=== PATIENT | female | born 1985 | race Two or more races ===

== ENCOUNTER 2017-02-24 01:49 | Inpatient (IN) | payer BC ==
[2017-02-24 02:48] VITALS: BMI 29.7
[2017-02-24] MEDS ORDERED: Lactated Ringer's 1,000 ML IV SCH ×4 (03:00→13:00)
--- NOTE | 2017-02-24 04:44 | OBHP ---
Datetime: 02/24/2017 02:35 IP Adm Impression: , intrauterine IP Chief Complaint Other: cramping pain IP Admit Plan: Observation/Evaluation Admit Comment, IP Provider: 32 y/o @ 30.0 weeks via LMP presents complaining of cramping lower abdominal pain. Pt reports pain started suddenly at 20:30 on 02/23 and has been constant since. Taz s inciting event. Pain is constant, "feels like band around abdomen", and radiates to her lower back. Denies alleviating factors. Denies change in diet, sexual activity. Reports less than normal PO flui d intake today. Denies VB/LOF and reports good FM. No other associated symptoms. Denies fever/chills, headaches, visual disturbances, epigastric pain, CP/SOB, N/V/D/C, urinary symptoms. PMD: Dr. Alcantara POBhx: , uncomplicated pregnacy thus far : uneventful, compliant with care PSurgHx: none PMHx: Intermittent asthma Meds: rescue inhaler PRN, PNVs ALL: aspirin (rxn anaphylaxis) Social: denies ETOH, tobacco, drug use, sexual activity A/P: 32 y/o @ 30.0 weeks IUP via LMP for evaluation of cramping abdominal pain. -IV fluid hydration, 1L LR @999, re-evaluate after -FHR monitoring -case discussed with Dr. Vicente Denis MD PGY1 @ 2:45am The patient specifically with resident I agree with the note patient received IV fluid hydration w ill send fibronectin. cont observation Pelvic Type - PN: Not Done Extremities - PN: Normal Abdomen - PN: Normal Back - PN: Normal Breast - PN: Normal Lungs - PN: Normal Heart - PN: Normal Thyroid - PN: Normal Neurologic - PN: Normal HEENT - PN: Normal General - PN: Normal FHR - Baseline A Provider: 140 EGA AdmitDate IP: 30.0 Vital Signs Provider: Reviewed; Within Normal Limits IP Chief Complaint: Maternal discomfort NICHD Variability Prov Fetus A: Moderate 6-25bpm NICHD Accel Fetus A IP Provider: 10X10 FHR Category Provider Fetus A: Category I NICHD Decel Fetus A IP Provider: None Dilatation, Provider: 0 Effacement, Provider: 0 Station, Provider: -2 Genitourinary Exam: Not Done DTRs - PN: Normal
--- NOTE | 2017-02-24 10:31 | US ---
HISTORY: Contractions at 30 weeks COMPARISON: No prior TECHNIQUE: Transabdominal/transvaginal sonographic evaluation of the pelvis performed. FINDINGS: Findings: Current study reveals single living intrauterine gestation at with average age of approximately 30 weeks 2 days +/-2 weeks 5 days. . Cephalic presentation. Placenta is anteriorly located free of the cervical os Measurements: HC 27.68 cm = 30 weeks 2 days Heart rate document at 140 BPM CHAR based on average ultrasound age = 0805/03/2017 The cervix measures approximately 3.99 cm and appears slightly open with questionable tiny amount of flow fluid within the proximal endocervical canal. . Impression: Limited ultrasound performed to assess cervical sized. . Single living intrauterine gestation at approximately 30 weeks 2 days +/-2 weeks 5 days. Cephalic presentation. Placenta is anteriorly located free of the cervical os. Heart rate document at 1:40 BPM The cervix is slightly measuring 3.99 cm. Questionable tiny amount of fluid within the proximal endocervical canal
[2017-02-24] MEDS ORDERED: Magnesium Sulfate 4 gm/100 ml 4 GM/100 ML BAG IV ONE (11:42)
[2017-02-24] MEDS ORDERED: Magnesium Sul 40GM/1L SW 40 GM/1,000 ML ML IV ONE (11:42)
--- NOTE | 2017-02-24 12:11 | OBADHP ---
Datetime: 02/24/2017 12:02 Admit Comment, IP Provider: 32 yo G1 at 30 wks w/ abdominal cramping and tenderness, FFN negative, c ervix slighty open and 3.99 cm Pt admitted for Betamethasone and IV magnesium H_P dictated, "[id number]" (ES) Abdomen - PN: Abnormal Neurologic - PN: Normal General - PN: Normal FHR - Baseline A Provider: 130s Membranes, Provider: Intact Contraction Comments Provider: 2-3 Vital Signs Provider: Reviewed IP Chief Complaint: Maternal discomfort NICHD Variability Prov Fetus A: Moderate 6-25bpm Dilatation, Provider: 0 Effacement, Provider: 0 Station, Provider: -3 Genitourinary Exam: Normal EGA AdmitDate IP: 30.0 IP Adm Impression: , intrauterine IP Admit Plan: Initiate labor protocol Datetime: 02/24/2017 02:35 IP Chief Complaint Other: cramping pain Pelvic Type - PN: Not Done Extremities - PN: Normal Back - PN: Normal Breast - PN: Normal Lungs - PN: Normal Heart - PN: Normal Thyroid - PN: Normal HEENT - PN: Normal NICHD Accel Fetus A IP Provider: 10X10 FHR Category Provider Fetus A: Category I NICHD Decel Fetus A IP Provider: None DTRs - PN: Normal
[2017-02-24] MEDS: Betamethasone Soluspan 30 mg/5mL Inj Susp IM SCH (13:08)
--- NOTE | 2017-02-24 16:27 | HP ---
HISTORY OF PRESENT ILLNESS: This is a 32-year-old G1 at 30 weeks and 0 days with an EDC of 05/05/2017 by LMP, consistent with 7-week ultrasound, who presents last night feeling abdominal cramping that started around 8:30, became progressively worse and became constant at 10:00 p.m. Of note, patient's father who was in [facility] unexpectedly on Tuesday. Last night, patient had an fFN done that was negative. She has also had a cervical length done this am. The ultrasound findings for her current study reveal single live intrauterine gestation with an average age of approximately 30 weeks and 2 days , cephalic presentation. Placenta is anterior, located free of the cervical os. The cervix measures approximately 3.99 cm, appears slightly open with questionable tiny amount of flow fluid within the proximal endocervical canal. The patient still feels abdominal tenderness and she is still karri on the monitor and so it was decided to admit her to the hospital for steroids and magnesium. Of note, this patient is rubella nonimmune and it was recommended she receive MMR . This is also complicated by the fact that size is greater than dates. On 01/19/2017, the overall biometry was in the 87th percentile and JAKE was 21.4, which was increased. The patient had a one hour Glucola which was 144 and her 3-hour glucose tolerance test was negative. PAST MEDICAL HISTORY: Asthma, no hospitalizations. PAST SURGICAL HISTORY: None. MEDICATIONS: vitamins, calcium, and vitamin E. ALLERGIES: ASPIRIN WHICH CAUSES ASTHMA. GYNECOLOGICAL HISTORY: On 09/2016, Pap smear was ASCUS with negative HPV. The patient denies any history of any STDs and patient does report regular periods. FAMILY HISTORY: Her father had hypertension and is . Her mother has hypertension. SOCIAL HISTORY: The patient denies tobacco, alcohol, and illicit drug use. MEDICAL HISTORY: Of note, patient reports that she had the Mirena inserted maybe about in 08/2015 and it was removed in about 04/2016 due to an infection per patient, although she was never prescribed antibiotics. LABORATORIES: Hemoglobin electrophoresis normal. Blood type O positive, antibody screen negative. Pap ASCUS with negative HPV. Urine culture negative, gonorrhea and chlamydia negative. Syphilis negative, rubella nonimmune, HIV negative, hepatitis B surface antigen negative. Spinal muscular atrophy negative. Fragile X negative. Cystic fibrosis negative. Panorama was low risk and it was male fetus. Maternal serum AFP was negative. Her 1-hour Glucola was 144. A 3-hour glucose tolerance test was negative and on 02/18/2017 , she had 28-week labs. Syphilis, HIV were negative with a 3-hour glucose tolerance test which was negative. PHYSICAL EXAMINATION: VITAL SIGNS: Afebrile. Vital signs stable. GENERAL: The patient appears comfortable lying in bed. ABDOMEN: Mildly diffusely tender abdomen. VAGINAL: The internal os feels closed, and external os feels open and the cervix feels moderately soft. External heart monitor: The baseline is in the 130s with moderate variability Tocodynamometer: Irritability noted as well as irregular contractions. ASSESSMENT AND PLAN: This is a 32-year-old G1 at 30 weeks and 0 days who started having cramps last night that became progressively worse. By ultrasound , the cervix is slightly open and measures about 3.99 cm in length. fibronectin was negative. The patient is symptomatic, complaining of abdominal tenderness and it was decided to give her betamethasone for lung maturity and IV magnesium given that she is slightly dilated and still symptomatic. Glen Alcantara MD cc: [id number] TT: 02/24/2017 16:26:36 sn MTDD
--- NOTE | 2017-02-25 06:23 | OBDS ---
MATERNAL INFORMATION Provider Comments: Pt progressed to complete and pushed to deliver a viable male through bety r fluid at 05:28am. Terminal meconium present. Apgars 9 and 9. Wt 8#4.8. Nuchal x 1 easilt reduced . Mouth and nares bulb-suctioned. Cord clamped and cut. placed on mother's abdomen. Cord b lood collected. Placenta delivered spontaneously intact w/ 3vc at 05:34am. 3rd degree tear repaired w/ 0-v, 2-0rapide and 3-0v. Rectum intact. Pt and baby tolerated procedure well. EBL 250mL LABOR SUMMARY EDC: 05/05/2017 00:00 No. Babies in Womb: 1 VAGINAL DELIVERY Laceration Repair Note: Spincter muscle reapproximated w/ interrupted stitches of 0-v. Vagina and p erineum reapproximated w/ 2-0 rapide and 3-0v. Rectum intact.
[2017-02-25] MEDS ORDERED: Magnesium Sul 40GM/1L SW 40 GM/1,000 ML ML IV ONE (08:35)
--- NOTE | 2017-02-25 10:04 | OBPN ---
Datetime: 02/25/2017 10:01 IP Progress Impression: Reassuring heart rate IP Progress Plan: Continue present management; Discharge IP Progress Note Comment: She feel comfortble. No pain. Will given second dose of Betamethasone and discharge home...Spoke to PMD Dr Alcantara...appt next WE ed for CLM and OB appt next tuesday Datetime: 02/24/2017 12:02 Membranes, Provider: Intact Contraction Comments Provider: 2-3 FHR - Baseline A Provider: 130s Vital Signs Provider: Reviewed NICHD Variability Prov Fetus A: Moderate 6-25bpm Dilatation, Provider: 0 Effacement, Provider: 0 Station, Provider: -3 Datetime: 02/24/2017 02:35 NICHD Accel Fetus A IP Provider: 10X10 FHR Category Provider Fetus A: Category I NICHD Decel Fetus A IP Provider: None
[2017-02-25] MEDS: Betamethasone Soluspan 30 mg/5mL Inj Susp IM SCH (11:22)
== END 2017-02-25 11:50 | disposition home or self-care (01) | DRG 775 ==
LOC: H.EROB2 01:49 → H.L&D 11:38
PROVIDERS: ADMIT Obstetrics & Gynecology; ATTEND Obstetrics & Gynecology
PROC: 0DQR0ZZ Repair Anal Sphincter, Open Approach (ICD-10-PCS; principal; 2017-02-24)
PROC: 10E0XZZ Delivery of Products of Conception, External Approach (ICD-10-PCS; 2017-02-24)
PROC: 4A1HXCZ Monitoring of Products of Conception, Cardiac Rate, External Approach (ICD-10-PCS; 2017-02-24)
DX: O69.81X0 Labor and delivery complicated by cord around neck, without compression, not applicable or unspecified (principal); O70.20 Third degree perineal laceration during delivery, unspecified; J45.909 Unspecified asthma, uncomplicated; Z37.0 Single live birth; O99.52 Diseases of the respiratory system complicating childbirth; O77.0 Labor and delivery complicated by meconium in amniotic fluid; Z82.49 Family history of ischemic heart disease and other diseases of the circulatory system; Z3A.30 30 weeks gestation of pregnancy

== ENCOUNTER 2017-05-11 19:06 | Inpatient (IN) | payer BC, OTHER ==
[2017-05-11 20:01] VITALS: BMI 33.7
[2017-05-11 20:26] LABS: HEMATOCRIT 35.2 % (34.0-47.0); MEAN CELL VOLUME 91.6 fl (81.0-99.0); MEAN CORPUSCULAR HEMOGLOBIN 31.8 pg (27.0-31.0); MEAN CORPUSCULAR HGB CONC 34.7 g/dL (33.0-37.0); RED CELL DISTRIBUTION WIDTH 14.8 % (11.5-14.5); WHITE BLOOD COUNT 9.6 K/uL (4.8-10.8)
[2017-05-12] MEDS: Lactated Ringer's 1,000 ML IV SCH ×4 (03:32→18:19)
[2017-05-12] MEDS ORDERED: Fentanyl/Bupivacaine HCl 250 ML EPI ONE (03:54)
[2017-05-12] MEDS ORDERED: Oxytocin 30 units/LR 500ML 30 U/500 ML BAG IV ONE (07:27)
[2017-05-12] MEDS ORDERED: Lidocaine 1% Inj (20ml) ONE (07:27)
--- NOTE | 2017-05-12 08:05 | OBADHP ---
Datetime: 05/11/2017 19:57 Admit Comment, IP Provider: 32 y/o F, , IUP@40.6 weeks, L_D for induction of labor. denies nause a, vomiting, SOB, chest pain or visual changes - positive FM, negative LOF/BV/CTX PMD: Dr. Alcantara POBhx: : uneventful PSurgHx: none PMHx: Intermittent asthma Meds: rescue inhaler PRN, PNVs ALL: aspirin (rxn anaphylaxis) Social: denies ETOH, tobacco, drug use, sexual activity ROS: as per HPI VS: 129/83, stable FHR: 166 PE: unremarkable A/P: 32 y/o F, , IUP@40.6 weeks, L_D for induction of labor. - Admit to L_D - initiate Induction of labor protocol - Observe and evaluate - Cervidil Case discussed with Dr. Bee --- Destiny Mccoy, PGY-1 Addendum: Patient presentation. Patient will be 3-4 cm dilated with 10% effacement. Discussed options with p atient. Plan for by mouth Cytotec. Discussed with patient information regarding induction process. Al l patient questions answered. Pelvic Type - PN: Adequate Extremities - PN: Normal Abdomen - PN: Normal Back - PN: Normal Breast - PN: Normal Lungs - PN: Normal Heart - PN: Normal Thyroid - PN: Normal Neurologic - PN: Normal HEENT - PN: Normal General - PN: Normal FHR - Baseline A Provider: 150 Vital Signs Provider: Reviewed; Within Normal Limits IP Chief Complaint: Scheduled induction of labor NICHD Variability Prov Fetus A: Moderate 6-25bpm NICHD Accel Fetus A IP Provider: 15X15 FHR Category Provider Fetus A: Category I NICHD Decel Fetus A IP Provider: None Genitourinary Exam: Normal DTRs - PN: Normal EGA AdmitDate IP: 40.6 IP Adm Impression: Term, intrauterine IP Admit Plan: Admit to unit; Initiate labor induction protocol; Observation/Evaluation; Discharge h ome
--- NOTE | 2017-05-12 09:59 | OBPN ---
Datetime: 05/12/2017 09:54 IP Progress Impression: Normal progression of labor IP Procedures: Sterile Vag Exam IP Progress Plan: Continue present management Membranes, Provider: Ruptured Amniotic Fluid Color, Provider: Clear FHR - Baseline A Provider: 140 IP Progress Note Comment: 32 yo G1 at 41 wks for induction of labor for post-dates s/p oral miso 50 x 1 AROM at 9 am FHT reassuring, GBS negative Vital Signs Provider: Reviewed NICHD Variability Prov Fetus A: Moderate 6-25bpm Dilatation, Provider: 6 Effacement, Provider: 100 Station, Provider: -2 NICHD Decel Fetus A IP Provider: None Datetime: 05/11/2017 19:57 NICHD Accel Fetus A IP Provider: 15X15 FHR Category Provider Fetus A: Category I
[2017-05-12] MEDS: Oxytocin 30 units/LR 500ML 30 U/500 ML BAG IV SCH ×2 (15:07→18:27)
[2017-05-12] MEDS ORDERED: Oxycodone/Acetaminophen 5/325 mg Tab PO PRN (15:56)
--- NOTE | 2017-05-12 16:32 | OBDS ---
DELIVERY PERSONNEL Delivery Doctor: Guera Alcantara MD Watch Band Assembler: Yesica Spence RN Anesthesiologist: Zabrina Healy MD MATERNAL INFORMATION Delivery Anesthesia: Epidural Medications in Delivery: pitocin Estimated Blood Loss (ml): 200 Placenta Cultured: No Maternal Complications: None Provider Comments: Pt progressed to complete and pushed to deliver a viable male through bety r fluid at 1502. Apgars 9 and 9. Wt 8#6.9, 3825 gms. Mouth and nares bulb-suctioned. Infant place d on mother's abdomen. Cord clamped and cut. Cord blood collected. Placenta delivered spontaneousl y intact w/ a 3vc at 1507. Second degree tear repaired w/ 2-0 rapide, 3-0v. Right labium majus split reaproximated w/ 3-0v. Rectum intact. Pt and baby tolerated the procedure well. EBL: 200mL LABOR SUMMARY EDC: 05/05/2017 00:00 No. Babies in Womb: 1 Attempted: No Labor Anesthesia: Epidural LABOR INFORMATION Reason for Induction: Postterm Onset of Labor: 05/12/2017 03:30 Complete Dilatation: 05/12/2017 12:30 Cervical Ripening Agents: Cytotec @ (Annotations: 50 mcg ) Cervical Ripening Agents: Cytotec @ (Annotations: 50 mcg ) Oxytocin: N/A Group B Beta Strep: Negative Steroids Given: None Reason Steroids Not Administered: Not Applicable MEMBRANES Membranes Rupture Method: Artificial Rupture of Membranes: 05/12/2017 09:04 Length of Rupture (hrs): 5.97 Amniotic Fluid Color: Clear Amniotic Fluid Amount: Small Amniotic Fluid Odor: Normal STAGES OF LABOR Stage 1 hrs: 9 Stage 1 min: 0 Stage 2 hrs: 2 Stage 2 min: 32 Stage 3 hrs: 0 Stage 3 min: 5 Total Time in Labor hrs: 11 Total Time in Labor min: 37 VAGINAL DELIVERY Episiotomy: None Laceration Extension: Second Degree Laceration Type: Perineal; Vaginal Laceration Repair: Yes Laceration Repair Note: Second degree tear repaired w/ 2-0 rapide, 3-0v. Right labium majus split re aproximated w/ 3-0v. Rectum intact. Initial Vag Sponge Count: 10 Final Vag Sponge Count: 10 Initial Vag Sharps Count: 7 Final Vag Sharps Count: 7 Sponge Count Correct: Yes Sharps Count Correct: Yes BABY A INFORMATION Infant Delivery Date/Time: 05/12/2017 15:02 Method of Delivery: Vaginal Born in Route : No : N/A Forceps: N/A Vacuum Extraction: N/A Shoulder Dystocia : No SHOULDER DYSTOCIA BABY A Infant Delivery Date/Time: 05/12/2017 15:02 PRESENTATION/POSITION BABY A Presentation: Cephalic PLACENTA INFORMATION BABY A Placenta Delivery Time : 05/12/2017 15:07 Placenta Method of Delivery: Spontaneous Placenta Status: Delivered SCORES BABY A Heart Rate 1 min: >100 bpm Resp Effort 1 min: Good Cry Reflex Irritability 1 min: Cough or Sneeze or Pulls Away Muscle Tone 1 min: Active Motion Color 1 min: [place], Extremities Blue Resuscitation Effort 1 min: Tactile Stimulation SCORE 1 MIN: 9 Heart Rate 5 min: >100 bpm Resp Effort 5 min: Good Cry Reflex Irritability 5 min: Cough or Sneeze or Pulls Away Muscle Tone 5 min: Active Motion Color 5 min: [place], Extremities Blue Resuscitation Effort 5 min: N/A SCORE 5 MIN: 9 INFANT INFORMATION BABY A Gestational Age at Delivery: 41.1 Gestational Status: Post-term Outcome : Liveborn Infant Condition : Stable Infant Sex: Male IDENTIFICATION/MEDS BABY A ID Band Number: [id number] ID Band Location: Left Leg; Left Arm WEIGHT/LENGTH BABY A Infant Birthweight (gms): 3825 Infant Weight (lb): 8 Weight (oz): 7 CORD INFORMATION BABY A No. Cord Vessels: 3 Nuchal Cord : N/A Cord Blood Taken: Yes Suction: None
[2017-05-12] MEDS: Benzocaine/Menthol SPRAY TOP PRN (17:37)
[2017-05-13 06:32] LABS: BASO # 0.1 K/uL (0.0-0.2); BASO % 0.4 % (0.0-2.0); EOS # 0.1 K/uL (0.0-0.7); EOS % 0.8 % (0.0-4.0); HEMATOCRIT 31.7 % (34.0-47.0); LYMPH % 15.9 % (20.0-40.0); MEAN CELL VOLUME 91.6 fl (81.0-99.0); MEAN CORPUSCULAR HEMOGLOBIN 31.7 pg (27.0-31.0); MEAN CORPUSCULAR HGB CONC 34.6 g/dL (33.0-37.0); MEAN PLATELET VOLUME 8.2 fl (7.2-11.7); MONO # 1.5 K/uL (0.0-0.8); MONO % 7.8 % (0.0-10.0); NEUT % 75.1 % (50.0-75.0); RED CELL DISTRIBUTION WIDTH 14.8 % (11.5-14.5); WHITE BLOOD COUNT 18.7 K/uL (4.8-10.8)
[2017-05-14] MEDS: Benzocaine/Menthol SPRAY TOP PRN (08:48)
--- NOTE | 2017-05-14 11:49 | OBPPN ---
Datetime: 05/14/2017 11:47 PP Pain Prov: Within normal limits PP Nausea Prov: Denies PP Flatus Prov: Yes PP Breasts Prov: Normal PP Heart Prov: Normal PP Lungs Prov: Normal PP Abdomen/Uterus Prov: Normal PP Lochia Prov: Normal PP Vulva/Perineum Prov: Normal PP CVA Tenderness Prov: Normal PP Extremities Prov: Normal PP Comments Phys Exam Prov: Fundus firm under umbilicus PP Impression Prov: Normal progression PP Plan Prov: Continue present management PP Progress Note Prov: Patient denies CP, no SOB, no N/V, tolerating PO diet, ambulating/voiding wel l, mild lochia, abominal pain tolerable with meds, A/P PPD #2 1. Discharge patient home 2. Discharge instructions reviewed IP PP Procedures: None Vital Signs Provider PP: Reviewed; Within Normal Limits
--- NOTE | 2017-05-14 11:51 | OBDCSUM ---
Datetime: 05/14/2017 09:22 Discharged to, Provider: Home Follow up at, Provider: OB Disch Instr Activity: Normal activity; May be up to bathroom; May be up for meals; May Shower Disch Instr Diet: Regular Discharge Instructions, Provider: Routine instructions given Discharge Diagnosis, Provider: Term Delivered Discharge Time: 05/14/2017 11:41 Follow up in weeks, Provider: 4-6 weeks Disch Referrals: None Contraception discussed, Prov: Yes Disch Activity Restrictions: Minimize stair-climbing; No sexual activity; Nothing in vagina - Interc ourse, tampons, douche Datetime: 02/25/2017 11:28 Disch Instr Activity: Normal activity
[2017-05-14] MEDS ORDERED: Measles, Mumps, and Rubella 0.5 ML VIAL SC ONE (12:00)
[2017-05-14] MEDS ORDERED: Pneumococcal 23-Valent Vaccine IM ONE (12:00)
[2017-05-14 23:36] VITALS: BP 136/76; PULSE 86; RESP 20; TEMP 98.1; O2SAT 100
== END 2017-05-14 19:35 | disposition home or self-care (01) | DRG 775 ==
LOC: H.EROB2 19:06 → H.L&D 20:01 → H.OB/GYN 05-12 19:26
PROVIDERS: ADMIT Obstetrics & Gynecology; ATTEND Obstetrics & Gynecology
PROC: 0KQM0ZZ Repair Perineum Muscle, Open Approach (ICD-10-PCS; principal; 2017-05-11)
PROC: 10E0XZZ Delivery of Products of Conception, External Approach (ICD-10-PCS; 2017-05-11)
PROC: 4A1HXCZ Monitoring of Products of Conception, Cardiac Rate, External Approach (ICD-10-PCS; 2017-05-11)
DX: O99.52 Diseases of the respiratory system complicating childbirth (principal); J45.20 Mild intermittent asthma, uncomplicated; Z37.0 Single live birth; O48.0 Post-term pregnancy; Z3A.41 41 weeks gestation of pregnancy; O70.1 Second degree perineal laceration during delivery